=== PATIENT | male | born 1965 | race Two or more races ===

== ENCOUNTER 2025-07-19 18:18 | Inpatient (IN) | payer MEDICARE, OTHER ==
[~2025-07-19] VITALS: Ht 170.2 cm; Wt 269.4 kg
[2025-07-19] MEDS ORDERED: ONDANSETRON HCL/PF 4 MG/2 ML VIAL IVP PRN (19:30)
[2025-07-19] MEDS ORDERED: Z GUARD REMEDY 4 OZ OINT TP PRN (19:30)
[2025-07-19] MEDS ORDERED: PIPERACI/TAZO 3.375GM/D5W 50ML PB IV ONE (19:37)
[2025-07-19 19:50] LABS: PLATELET COUNT (AUTO) 200 K/uL (150-450); RED BLOOD CELL COUNT(AUTO) 5.32 MIL/uL (4.5-6.0); RED CELL DISTRIBUTION WIDTH 14.9 % (11.5-15.0); WHITE BLOOD COUNT (AUTO) 10.9 K/uL (4.3-11.0)
[2025-07-19] MEDS: IV NS 0.9% 1,000 ML BAG IV ONE (19:50)
[2025-07-19] MEDS: PIPERACILLIN /TAZOBACTAM 3.375 G in IV D5W 50 ML IV ONE (19:50)
[2025-07-19 19:58] LABS: CALCIUM, SERUM 9.0 mg/dL (8.5-10.1); CREATININE 0.9 mg/dL (0.6-1.3); SODIUM SERUM 138.0 mmol/L (136-145); UREA NITROGEN, BLOOD 8.0 mg/dL (7-18)
[2025-07-19] MEDS ORDERED: CLONIDINE HCL 0.1 MG TABLET PO PRN (20:00)
[2025-07-19 20:04] LABS: LACTIC ACID 1.8 mmol/L (0.4-2.0)
[2025-07-19 20:05] LABS: ASPARTATE AMINOTRANSFERASE 16.0 U/L (15-37); TOTAL PROTEIN, SERUM 7.0 g/dL (6.4-8.2)
[2025-07-19] MEDS ORDERED: VANCOMYCIN 1 GM /D5W 250 ML PB IV ONE (20:42)
[2025-07-19] MEDS: VANCOMYCIN 1 GM in IV D5W 250 ML IV ONE (20:45)
[2025-07-19] MEDS ORDERED: ACETAMINOPHEN 325 MG TABLET ONE (23:01)
[2025-07-19] MEDS: ACETAMINOPHEN 325 MG TABLET PO PRN (23:04)
[2025-07-20 04:00] VITALS: BP 127/65; TEMP 98.4; O2SAT 94
[2025-07-20 07:04] LABS: PLATELET COUNT (AUTO) 185 K/uL (150-450); RED BLOOD CELL COUNT(AUTO) 5.28 MIL/uL (4.5-6.0); RED CELL DISTRIBUTION WIDTH 15.1 % (11.5-15.0); WHITE BLOOD COUNT (AUTO) 8.5 K/uL (4.3-11.0)
[2025-07-20 07:15] LABS: CALCIUM, SERUM 8.9 mg/dL (8.5-10.1); CREATININE 0.7 mg/dL (0.6-1.3); PHOSPHORUS 3.7 mg/dL (2.5-4.9); SODIUM SERUM 142.0 mmol/L (136-145); UREA NITROGEN, BLOOD 6.0 mg/dL (7-18)
[2025-07-20] MEDS ORDERED: OXYC-128 PO (08:42)
[2025-07-20] MEDS ORDERED: NALO4SPR NS (08:42)
[2025-07-20] MEDS ORDERED: HYDR25TA4 PO (08:42)
[2025-07-20] MEDS ORDERED: BISA10SU11 RC (08:42)
[2025-07-20] MEDS ORDERED: IPRA3AMP22 IH (08:42)
[2025-07-20] MEDS ORDERED: HYDR-4182 TP (08:42)
[2025-07-20] MEDS ORDERED: MAGN400O6 PO (08:42)
[2025-07-20] MEDS ORDERED: MELA3TAB41 PO (08:42)
[2025-07-20] MEDS ORDERED: NA P133E RC (08:42)
[2025-07-20] MEDS ORDERED: TRAZ-257 PO (08:42)
[2025-07-20] MEDS ORDERED: HYDR-500 PO (08:42)
[2025-07-20] MEDS ORDERED: ASCO-352 PO (08:42)
[2025-07-20] MEDS ORDERED: CHOL100043 PO (08:42)
[2025-07-20] MEDS ORDERED: ACET-868 PO (08:42)
[2025-07-20] MEDS ORDERED: CIPR7.5D9 RIGHT EAR (08:42)
[2025-07-20] MEDS ORDERED: SUMA50TA PO (08:42)
[2025-07-20] MEDS ORDERED: BISM-126 PO (08:42)
[2025-07-20] MEDS ORDERED: LORA10TA7 PO (08:42)
[2025-07-20] MEDS ORDERED: MAGN400T8 PO (08:42)
[2025-07-20] MEDS ORDERED: AMIN30LI2 PO (08:42)
[2025-07-20] MEDS ORDERED: LIDO700A30 TD (08:42)
[2025-07-20] MEDS ORDERED: MULT-213 PO (08:42)
[2025-07-20] MEDS ORDERED: *INS REG3 SQ (08:42)
[2025-07-20] MEDS ORDERED: IBUP-1953 PO (08:42)
[2025-07-20] MEDS ORDERED: FOLI0.4T6 PO (08:42)
[2025-07-20] MEDS ORDERED: VALS80TA2 PO (08:42)
[2025-07-20] MEDS ORDERED: BISACODYL SUPP (10 MG) 10 MG/SUPP.RECT SUPP.RECT RC PRN (09:30)
[2025-07-20] MEDS ORDERED: NA PHOS,M-B/NA PHOS,DI-BA 1 EA ENEMA RC PRN (09:30)
[2025-07-20] MEDS ORDERED: MAGNESIUM HYDROXIDE 30 ML UDC PO PRN (09:30)
[2025-07-20] MEDS ORDERED: DEXTROSE 50%-WATER 50 ML DISP.SYRIN IV PRN (09:30)
[2025-07-20] MEDS ORDERED: IPRATROPIUM NEB FS 0.5 MG/2.5 ML AMPUL.NEB NEB PRN (10:00)
[2025-07-20] MEDS ORDERED: ALBUTEROL FS 2.5 MG/0.5 ML VIAL.NEB NEB PRN (10:00)
[2025-07-20] MEDS ORDERED: CLINDAMYCIN IV RTU IN D5W 900 MG/50 ML PIGGYBACK IV SCH (11:00)
[2025-07-20] MEDS: CLINDAMYCIN 900 MG in IV D5W 50 ML IV SCH (11:15)
[2025-07-20 12:00] VITALS: BP 127/65; TEMP 98.4; O2SAT 94
[2025-07-20] MEDS: BLOOD SUGAR DIAGNOSTIC 1 EACH STRIP VI SCH (12:51)
[2025-07-20] MEDS: INSULIN REGULAR, HUMAN 100 UNIT/ML 3 ML VIAL SQ PRN (12:54)
[2025-07-20 16:00] VITALS: BP 142/71; TEMP 98; O2SAT 95
[2025-07-20] MEDS: CLOTRIMAZOLE/BETAMETASONE DIPROPIONATE 15 GM TUBE TP SCH (16:13)
[2025-07-20 20:00] VITALS: BP 121/66; TEMP 98.6; O2SAT 95
[2025-07-20] MEDS: ACETAMINOPHEN 325 MG TABLET PO PRN (20:55)
[2025-07-20] MEDS: *INSULIN REGULAR(HUMULIN R)HUM 100 UNIT/ML VIAL SQ PRN (21:19)
[2025-07-20] MEDS: IBUPROFEN 400 MG TABLET PO SCH (22:00)
[2025-07-20] MEDS: TRAZODONE 50 MG TABLET PO SCH (22:51)
[2025-07-21 04:41] VITALS: BP 127/64; TEMP 98.4; O2SAT 95
[2025-07-21 08:00] VITALS: BP 137/62; TEMP 99; O2SAT 92
[2025-07-21] MEDS: LORATADINE 10 MG TABLET PO SCH (09:41)
[2025-07-21] MEDS: HYDROCHLOROTHIAZIDE 25 MG TABLET PO SCH (09:41)
[2025-07-21] MEDS: LIDOCAINE 5% (PATCH) 1 EA PATCH TP SCH (09:41)
[2025-07-21] MEDS: VALSARTAN 80 MG TABLET PO SCH (09:42)
[2025-07-21 10:18] LABS: PLATELET COUNT (AUTO) 196 K/uL (150-450); RED BLOOD CELL COUNT(AUTO) 5.36 MIL/uL (4.5-6.0); RED CELL DISTRIBUTION WIDTH 15.5 % (11.5-15.0); WHITE BLOOD COUNT (AUTO) 8.9 K/uL (4.3-11.0)
[2025-07-21 10:40] LABS: CALCIUM, SERUM 8.9 mg/dL (8.5-10.1); CREATININE 1.0 mg/dL (0.6-1.3); SODIUM SERUM 142.0 mmol/L (136-145); UREA NITROGEN, BLOOD 6.0 mg/dL (7-18)
[2025-07-21] MEDS: MAG HYDROX/AL HYDROX/SIMETH 30 ML UDC PO PRN (14:03)
[2025-07-21] MEDS: MAGNESIUM HYDROXIDE 30 ML UDC PO PRN (14:03)
[2025-07-21 16:00] VITALS: BP 114/67; TEMP 99; O2SAT 98
[2025-07-21] MEDS: HYDROCORTISONE CR 30 GM TUBE RC PRN (17:36)
[2025-07-22] VITALS: BP 114/62; TEMP 98.1; O2SAT 95
[2025-07-22 04:00] VITALS: BP 107/62; TEMP 98.2; O2SAT 95
[2025-07-22] MEDS: oxyCODONE/APAP (5/325 MG) 1 UDTAB TABLET PO PRN (04:40)
[2025-07-22 08:00] VITALS: BP 120/74; TEMP 97.5; O2SAT 95
[2025-07-22] MEDS ORDERED: SULF1TAB48 PO (09:50)
[2025-07-22 16:00] VITALS: BP 114/73; TEMP 97.1; O2SAT 96
[2025-07-23] VITALS: BP 113/63; TEMP 97.3; O2SAT 96
[2025-07-23 08:00] VITALS: BP 138/79; TEMP 97.5; O2SAT 96
[2025-07-23 08:47] VITALS: BP 138/79
[2025-07-23] MEDS: NYSTATIN TOP POWDER 15 GM BOTTLE TP SCH (08:49)
== END 2025-07-23 13:38 | DRG 641 ==
LOC: ER 18:25 → MEDSG1 21:43
PROVIDERS: ADMIT Internal Medicine; ATTEND Internal Medicine
PROC: 05HD33Z Insertion of Infusion Device into Right Cephalic Vein, Percutaneous Approach (ICD-10-PCS; principal; 2025-07-21)
DX: E66.01 Morbid (severe) obesity due to excess calories (principal); F11.20 Opioid dependence, uncomplicated; L97.129 Non-pressure chronic ulcer of left thigh with unspecified severity; L97.119 Non-pressure chronic ulcer of right thigh with unspecified severity; Z68.43 Body mass index [BMI] 50.0-59.9, adult; L89.329 Pressure ulcer of left buttock, unspecified stage; L89.319 Pressure ulcer of right buttock, unspecified stage; I10 Essential (primary) hypertension; L30.9 Dermatitis, unspecified; G89.4 Chronic pain syndrome; E11.9 Type 2 diabetes mellitus without complications; L98.419 Non-pressure chronic ulcer of buttock with unspecified severity; L89.892 Pressure ulcer of other site, stage 2
CPT/HCPCS: 36410; 36415; 71045-TC; 80048-TC; 80076-TC; 82962-TC; 83605-TC; 83735-TC; 84100-TC; 85025-TC; 87040-TC; 97110-TC; 97112-TC; 97530-TC; 97535-TC; A4223; G0378; J1815; J2543; J3373; J3490; J7060; Q0177